=== PATIENT | male | born 1975 | race Hispanic/Latino ===

== ENCOUNTER 2020-08-18 02:55 | Emergency (ER) | payer SELFPAY ==
--- NOTE | 2020-08-18 08:24 | RAD ---
LEFT SHOULDER 3 VIEWS: DATE: 08/18/2020. FINDINGS: No fracture, dislocation, or AC joint widening was seen. The visible adjacent ribs appear intact. T he scapula appears intact. IMPRESSION: No acute finding. POS: HOME
== END 2020-08-18 03:22 ==
LOC: BURERS 02:55
DX: M25.512 Pain in left shoulder (principal); I10 Essential (primary) hypertension; V89.2XXA Person injured in unspecified motor-vehicle accident, traffic, initial encounter